=== PATIENT | male | born 1965 | race Caucasian/White ===

== ENCOUNTER 2024-07-31 09:56 | Outpatient (CLI) | payer OTHER, BC, SELFPAY | END 2024-07-31 09:57 | disposition home or self-care (01) | LOC: AMB 08-06 05:26 | PROVIDERS: Visit Provider Internal Medicine | DX: S81.812A Laceration without foreign body, left lower leg, initial encounter (principal); W26.8XXA Contact with other sharp object(s), not elsewhere classified, initial encounter; Y93.9 Activity, unspecified; Y92.63 Factory as the place of occurrence of the external cause | CPT/HCPCS: A0425; A0427 ==

== ENCOUNTER 2024-07-31 10:15 | Emergency (ER) | payer OTHER, BC, SELFPAY ==
[2024-07-31 10:19] VITALS: BP 133/80; PULSE 67; RESP 16; TEMP 36.5; O2SAT 95; BMI 35.0
--- NOTE | 2024-07-31 11:14 | ED.WOUNDLAC ---
HPI - Wound/Laceration General Chief Complaint: Laceration/Wound Stated Complaint: Knee contusion Time Seen by Provider: 07/31/24 10:19 History of Present Illness HPI narrative: Patient is a 5-year-old gentleman who bumped the lateral aspect of his left knee on a sharp piece of metal today at post cereal. He suffered a 4 cm laceration. He has no bony pain and can bear weight without any difficulty. Patient is up-to-date on his tetanus shot. Pain is mild. Hemostasis has been achieved patient came in by ambulance. Related Data Home Medications ?Medication ?Instructions ?Recorded ?Confirmed aspirin 81 mg capsule 81 mg PO DAILY 07/31/24 07/31/24 lisinopril 20 1 tab PO DAILY 07/31/24 07/31/24 mg-hydrochlorothiazide 12.5 mg tablet omeprazole 20 mg capsule,delayed PO 07/31/24 release rosuvastatin 40 mg tablet 40 mg PO DAILY 07/31/24 07/31/24 verapamil 240 mg tablet,extended 240 mg PO DAILY 07/31/24 07/31/24 release Allergies Allergy/AdvReac Type Severity Reaction Status Date / Time Penicillins Allergy Verified 07/31/24 10:22 Review of Systems Status of ROS: Reports: 10 or more systems reviewed and unremarkable except as noted in History and below PFSH PFS Social History Smoking Status: Current every day smoker How often do you have a drink containing alcohol: 2-4 times a month AUDIT-C Alcohol total score: 2 Non-prescribed substance use: denies use Exam Narrative: Exam Narrative: EXAM GENERAL: Patient appears comfortable and well. EYES: No scleral icterus. LYMPH: No supraclavicular or cervical lymphadenopathy. SKIN: Visible skin seen during exam normal or with benign process only. EXT: Laceration as described above lateral HEART: Regular rate and rhythm with no murmurs, rubs, or gallops. LUNGS: Clear to auscultation bilaterally with no crackles or wheezes. ABD: Soft, non tender, non distended. PSYCH: Good eye contact, speech is not pressured. Const: Vital Signs, click to edit/add: Vital Signs - 24 hr 07/31/24 10:19 Temperature 97.7 F Pulse Rate [Right Pulse Oximeter] 67 Respiratory Rate 16 Blood Pressure [Le ft Upper Arm] 133/80 Pulse Oximetry 95 Oxygen Delivery Me thod Room Air Course Vital Signs Vital signs: Initial Vital Signs Temperature 97.7 F 07/31/24 10:19 Temperature Source Temporal Artery Scan 07/31/24 10:19 Pulse Rate 67 07/31/24 10:19 Respiratory Rate 16 07/31/24 10:19 Blood Pressure 133/80 07/31/24 10:19 Blood Pressure Mean 97 07/31/24 10:19 Blood Pressure Position Semi-Fowlers 07/31/24 10:19 Pulse Oximetry 95 07/31/24 10:19 Oxygen Delivery Method Room Air 07/31/24 10:19 Vital Signs Temperature 97.7 F 07/31/24 10:19 Pulse Rate 67 07/31/24 10:19 Respiratory Rate 16 07/31/24 10:19 Blood Pressure 133/80 07/31/24 10:19 Pulse Oximetry 95 07/31/24 10:19 Oxygen Delivery Method Room Air 07/31/24 10:19 Temperature 97.7 F 07/31/24 10:19 Pulse Rate 67 07/31/24 10:19 Respiratory Rate 16 07/31/24 10:19 Blood Pressure 133/80 07/31/24 10:19 Pulse Oximetry 95 07/31/24 10:19 Oxygen Delivery Method Room Air 07/31/24 10:19 MDM - Wound/Laceration MDM Narrative Medical decision making narrative: Patient is a 59-year-old gentleman update his tetanus shot presents with laceration. The wound was anesthetized with 1% lidocaine with epinephrine. I a did than aggressively irrigate the wound after which I closed the wound with 6 running 3-0 Ethilon sutures. He is instructed on wound care and will follow-up with his primary physician in 2 weeks for suture removal. Discharge Plan Discharge Clinical Impression: Laceration Patient Disposition: Home, Self-Care Condition: Stable Instructions: Laceration (ED) Additional Instructions: Triple Antibiotic and bandages daily. Suture removal in 14 days. Activity Level: No Restrictions Discharge Diet: Regular Prescriptions: No Action lisinopril-hydrochlorothiazide 20-12.5 mg tablet 1 tab PO DAILY omeprazole 20 mg capsule,delayed release(DR/EC) PO verapamil 240 mg tablet extended release 240 mg PO DAILY rosuvastatin 40 mg tablet 40 mg PO DAILY aspirin 81 mg capsule 81 mg PO DAILY Follow Up/Referrals: Provider,Not a Local [Primary Care Provider] - Stand Alone Forms: [employer] Info Instructions
== END 2024-07-31 11:37 | disposition home or self-care (01) ==
PROVIDERS: Emergency Provider Internal Medicine
DX: S81.012A Laceration without foreign body, left knee, initial encounter (principal); W26.9XXA Contact with unspecified sharp object(s), initial encounter; Y92.9 Unspecified place or not applicable; Y99.0 Civilian activity done for income or pay
CPT/HCPCS: 12002; 99283